=== PATIENT | male | born 1960 | race African-American/Black ===

== ENCOUNTER 2020-02-04 19:21 | Emergency (ER) | payer OTHER ==
[~2020-02-04] VITALS: Ht 193 cm; Wt 120.2 kg
[2020-02-04 19:24] VITALS: BP 145/97
--- NOTE | 2020-02-04 19:45 | Emergency Room Report ---
History of Present Illness General Chief Complaint: Pain Source: Patient Present Illness HPI 59-year-old male with history of hypertension and chronic bilateral lower extremity pain and edema from [place], brought in by ambulance due to increased pain in the right lower leg. Also fresh abrasion noted over right anterior tib- fib. Patient rates the pain 10 out of 10. Appears to have an underlying psychiatric disorder. Reports that he is taking hydrochlorothiazide for hypertension. Bilateral lower extremity, and tightness noted. Appears to be chronic. Patient does not cooperate with physical examination. Denies any tingling numbness at this time. Denies chest pain, shortness of breath, cough or congestion. Has been taking ibuprofen for pain relief with minimal relief. Allergies: Coded Allergies: IBUPROFEN (Verified Allergy, Unknown, 02/04/20) COVID-19 Screening Contact w/high risk pt: No Recent Travel to affected area: No Experienced COVID-19 symptoms?: No Patient History Past Medical History: see triage record Past Surgical History: unable to obtain Pertinent Family History: unable to obtain Immunizations: UTD Reviewed Nursing Documentation: PMH: Agreed; PSxH: Agreed Nursing Documentation-PMH Past Medical History: No History, Except For Hx Hypertension: Yes Review of Systems All Other Systems: negative except mentioned in HPI Physical Exam Vital Signs Date Time Temp Pulse Resp B/P (MAP) Pulse Ox O2 Delivery O2 Flow Rate FiO2 02/04/20 19:15 97.0 100 18 145/97 (113) 98 Room Air Sp02 EP Interpretation: reviewed, normal General Appearance: no apparent distress, alert, GCS 15, non-toxic Head: normocephalic, atraumatic Eyes: bilateral eye normal inspection, bilateral eye PERRL ENT: hearing grossly normal, normal pharynx, no angioedema, normal voice Neck: full range of motion, supple/symm/no masses Respiratory: chest non-tender, lungs clear, normal breath sounds, speaking full sentences Cardiovascular #1: regular rate, rhythm, no edema Gastrointestinal: non tender, soft Genitourinary: no CVA tenderness Musculoskeletal: calf tenderness, Kylie's Sign negative, swelling - bilateral lower extremities Neurologic: alert, motor strength/tone normal, oriented x3, sensory intact, responsive, speech normal Psychiatric: judgement/insight normal, memory normal, mood/affect normal, no suicidal/homicidal ideation Skin: abrasion - right tib fib Lymphatic: normal inspection Medical Decision Making PA Attestation All my diagnosis and treatment plans were reviewed ad discussed with my supervising physician Dr. Corado Diagnostic Impression: Primary Impression: Leg edema ER Course 59-year-old male with history of hypertension and chronic bilateral lower extremity pain and edema from [place], brought in by ambulance due to increased pain in the right lower leg. Also fresh abrasion noted over right anterior tib- fib. Patient rates the pain 10 out of 10. Appears to have an underlying psychiatric disorder. Reports that he is taking hydrochlorothiazide for hypertension. Bilateral lower extremity, and tightness noted. Appears to be chronic. Patient does not cooperate with physical examination. Denies any tingling numbness at this time. Denies chest pain, shortness of breath, cough or congestion. Has been taking ibuprofen for pain relief with minimal relief. Ddx considered but are not limited to : Cellulitis, DVT, CHF, edema of bilateral lower extremity Vital signs: are WNL, pt. is afebrile H&PE are most consistent with:leg edema ORDERS:, Right tib-fib x-ray, bilateral venous duplex ultrasound of lower extremities, CBC, CMP, PT and PTT ED INTERVENTIONS: Lasix 20 p.o. Signed out the patient to Dr. Corado at 8 PM Other X-Ray Diagnostic Results Other X-Ray Diagnostic Results : X-Ray ordered: right tib-fib # of Views/Limited Vs Complete: 3 View Indication: Pain EP Interpretation: Yes PA Xray: Interpretation reviewed, by supervising MD, and agrees with findings. Interpretation: no dislocation, no soft tissue swelling, no fractures Impression: No acute disease Electronically Signed by: Dakotah Freeman PA-C Last Vital Signs Date Time Temp Pulse Resp B/P (MAP) Pulse Ox O2 Delivery O2 Flow Rate FiO2 02/04/20 19:15 97.0 100 18 145/97 (113) 98 Room Air Scripts Cephalexin* (KEFLEX*) 500 Mg Capsule 500 MG ORAL EVERY 6 HOURS, #28 CAP Prov: Kem Corado MD 02/04/20 Dakotah Pereira Feb 04, 2020 19:45
[2020-02-04 20:34] VITALS: BP 179/107
[2020-02-04 20:40] LABS: EOSINOPHILS % (AUTO) 0.1 % (0.0-3.0); HEMATOCRIT 46.4 % (42.0-52.0); HEMOGLOBIN 13.6 G/DL (14.2-18.0); LYMPHOCYTES % (AUTO) 8.5 % (20.0-45.0); MEAN CORPUSCULAR VOLUME 83 FL (80-99); MONOCYTES % (AUTO) 6.3 % (1.0-10.0); NEUTROPHILS % (AUTO) 84.1 % (45.0-75.0); PLATELET COUNT 149 K/UL (150-450); RED BLOOD COUNT 5.61 M/UL (4.70-6.10); RED CELL DISTRIBUTION WIDTH 20.7 % (11.6-14.8); WHITE BLOOD COUNT 9.4 K/UL (4.8-10.8)
--- NOTE | 2020-02-04 20:41 | Diagnostic Imaging Report ---
Exam: Ultrasound bilateral lower extremity History: Swelling Findings: There is normal compression, augmentation, color flow in the right common femoral, superficial femoral, femoral in the popliteal vein. No thrombus is identified. Right groin lymph node is noted. Impression: Negative for right lower extremity DVT.
[2020-02-04 20:50] LABS: INR 1.6 (0.9-1.1)
[2020-02-04 20:55] LABS: ANION GAP 13 mmol/L (5-15); BLOOD UREA NITROGEN 77 mg/dL (7-18); CALCIUM 9.1 MG/DL (8.5-10.1); CARBON DIOXIDE 23 MMOL/L (21-32); CHLORIDE 108 MMOL/L (98-107); CREATININE 3.4 MG/DL (0.55-1.30); POTASSIUM 5.3 MMOL/L (3.5-5.1); SODIUM 144 MMOL/L (136-145)
[2020-02-04 21:08] LABS: ALANINE AMINOTRANSFERASE 105 U/L (12-78); ALBUMIN/GLOBULIN RATIO 0.8 (1.0-2.7); ALKALINE PHOSPHATASE 173 U/L (46-116); ASPARTATE AMINO TRANSFERASE 309 U/L (15-37); BILIRUBIN,TOTAL 2.9 MG/DL (0.2-1.0)
[2020-02-04] MEDS ORDERED: Morphine Sulfate 2mg/ml Inj(IV/IM USE ONLY) IVP ONE (22:15)
[2020-02-04] MEDS ORDERED: CEPHALEXIN500 MG ORAL (22:25)
[2020-02-04 22:30] VITALS: BP 169/99
[2020-02-04] MEDS ORDERED: cefTRIAXone 1 GM in NS 55 ML IVPB ONE (22:30)
[2020-02-04 23:30] VITALS: BP 162/99
--- NOTE | 2020-02-05 10:54 | Diagnostic Imaging Report ---
Indication: Trauma, pain Technique: 2 views of the right tibia and fibula Comparison: none Findings: No acute fractures. No dislocations. There is mild degenerative narrowing of the medial knee joint compartment. There are degenerative changes of the patellofemoral compartment as well as mild degenerative changes of the ankle joint. Surgical jennifer are seen in the ankle. There appears to be some surface irregularity of the skin of the lateral ankle region. Impression: No acute process degenerative changes, as described Possible lateral ankle soft tissue injury. Correlate with clinical findings
--- NOTE | 2020-02-05 10:59 | Diagnostic Imaging Report ---
Indication: Reason For Exam: PAIN Technique: 2 views right foot Comparison: none Findings: Exam is limited by the availability of only 2 images. No acute fractures. No dislocations. [place] are seen in the lateral midfoot soft tissues. There are degenerative changes of the ankle joint. There is a small plantar spur. There is hammertoe deformity of the second through fifth digits. Impression: No acute process
--- NOTE | 2020-02-05 15:13 | Diagnostic Imaging Report ---
Indication: Shortness of breath Technique: One view of the chest Comparison: None Findings: The heart is markedly enlarged. The lungs and pleural spaces are grossly clear, although the left lung base is somewhat obscured by the cardiomegaly. Impression: Cardiomegaly. No definite acute process
== END 2020-02-04 23:30 | disposition home or self-care (01) ==
LOC: EDBD 19:21 → EMR 20:08 → EDBD 20:08 → EMR 23:30
DX: R60.0 Localized edema (principal); M79.605 Pain in left leg; M79.604 Pain in right leg; I10 Essential (primary) hypertension; Z79.899 Other long term (current) drug therapy
CPT/HCPCS: 36415; 71045; 73590; 73620; 80053; 82248; 85025; 85610; 85730; 93971; 96365; 96375; J0696; J2270; Z7502; 99284

== ENCOUNTER 2020-02-29 15:36 | Emergency (ER) | payer OTHER ==
[~2020-02-29] VITALS: Ht 177.8 cm; Wt 136.1 kg
[~2020-02-29 15:36] MED LIST: CEPHALEXIN500 MG ORAL
[2020-02-29 15:37] VITALS: BP 123/79
--- NOTE | 2020-02-29 15:37 | NUR ---
ED Nurse Note: Patient MATI RA26 from home c/o SOB x1 week. Per pt, he ran out of all his meds. Stated that he has been hospitalized 2 weeks ago for the same sx. AAO x4, verbally responsive. Afebrile. Pt placed on cafeteria monitor. Covid isolation precaution observed. ERMD at bedside.
--- NOTE | 2020-02-29 15:40 | NUR ---
ED Nurse Note: IV line established. Blood and urine specimen collected and sent to lab.
--- NOTE | 2020-02-29 15:41 | Emergency Room Report ---
History of Present Illness General Chief Complaint: Dyspnea/Respdistress Source: Patient Present Illness HPI Disclaimer: Please note that this report is being documented using DRAGON technology. This can lead to erroneous entry secondary to incorrect interpretation by the dictating instrument. HPI: 59-year-old male with a history of atrial fibrillation, hypertension presents for evaluation shortness of breath. Symptoms present proximally 1 week. He notes a mild cough, nasal congestion, runny nose and some sore throat. He has had 2 nights of vomiting but is still able to tolerate liquids. Denies diarrhea, dysuria, hematuria, abdominal pain, chest pain, palpitations. Patient states he ran out of his hydrochlorothiazide, lisinopril , digoxin 2 nights ago. No known sick contacts. Denies fever, chills, fatigue. Denies any history of pulmonary disease such as asthma, emphysema, COPD and does not use any inhalers. PMH: A. fib, hypertension PSH: Reviewed Allergies: Tylenol, ibuprofen, vancomycin Social Hx: Tobacco use regularly Allergies: Coded Allergies: ACETAMINOPHEN (Unverified Allergy, Unknown, 02/29/20) IBUPROFEN (Verified Allergy, Unknown, 02/04/20) VANCOMYCIN (Unverified Allergy, Unknown, 02/29/20) COVID-19 Screening Contact w/high risk pt: No Recent Travel to affected area: No Experienced COVID-19 symptoms?: Yes COVID-19 symptoms experienced: Shortness of Breath COVID-19 Testing performed REINFORCING ROD LAYER: No Nursing Documentation-PMH Past Medical History: No History, Except For Hx Hypertension: Yes Review of Systems All Other Systems: negative except mentioned in HPI Physical Exam Vital Signs Date Time Temp Pulse Resp B/P (MAP) Pulse Ox O2 Delivery O2 Flow Rate FiO2 02/29/20 15:32 97.5 96 18 123/79 (94) 96 Room Air General: Awake and alert, no acute distress HEENT: NC/AT. EOMI. Cardiovascular: RRR. S1 and S2 normal. No murmur appreciated Resp: Normal work of breathing. No cough, wheezing or crackles appreciated Abdomen: Abdomen is soft, nondistended. Nontender Skin: Intact. No abrasions, laceration or rash over the exposed skin MSK: Normal tone and bulk. Moving all extremities. No obvious deformity. Neuro: Awake and alert. Mentating appropriately. Medical Decision Making Diagnostic Impression: Primary Impression: CHF (congestive heart failure) Additional Impressions: Pulmonary edema Atrial fibrillation Nonadherence to medication ER Course 59-year-old male presents for evaluation of shortness of breath. Differential includes was not limited to CHF exacerbation, medication noncompliance, fluid overload state, pneumonia, bronchitis, arrhythmia, ACS. Labs, EKG and chest x- ray were obtained. EKG shows atrial fibrillation with a normal rate. Troponin negative, digoxin outside of therapeutic window. Patient has a history of noncompliance. Remainder labs are normal limits. Chest x-ray concerning for cardiomegaly and pulmonary congestion likely secondary to medication noncompliance with his Lasix. IV Lasix given. Digoxin ordered. He will require admission for CHF exacerbation. Remains mildly tachycardic but no hypoxia. Patient will be transferred to a [facility]. He is stable for transfer. Laboratory Tests Test 02/29/20 15:51 White Blood Count 4.2 K/UL (4.8-10.8) L Red Blood Count 4.00 M/UL (4.70-6.10) L Hemoglobin 9.9 G/DL (14.2-18.0) L Hematocrit 34.8 % (42.0-52.0) L Mean Corpuscular Volume 87 FL (80-99) Mean Corpuscular Hemoglobin 24.8 PG (27.0-31.0) L Mean Corpuscular Hemoglobin Concent 28.6 G/DL (32.0-36.0) L Red Cell Distribution Width 20.4 % (11.6-14.8) H Platelet Count 143 K/UL (150-450) L Mean Platelet Volume 9.8 FL (6.5-10.1) Neutrophils (%) (Auto) 59.5 % (45.0-75.0) Lymphocytes (%) (Auto) 23.6 % (20.0-45.0) Monocytes (%) (Auto) 11.0 % (1.0-10.0) H Eosinophils (%) (Auto) 3.8 % (0.0-3.0) H Basophils (%) (Auto) 2.1 % (0.0-2.0) H Sodium Level 142 MMOL/L (136-145) Potassium Level 4.3 MMOL/L (3.5-5.1) Chloride Level 106 MMOL/L (98-107) Carbon Dioxide Level 31 MMOL/L (21-32) Anion Gap 5 mmol/L (5-15) Blood Urea Nitrogen 22 mg/dL (7-18) H Creatinine 1.5 MG/DL (0.55-1.30) H Estimated Glomerular Filtration Rate 57.8 mL/min (>60) Glucose Level 103 MG/DL (74-106) Calcium Level 9.2 MG/DL (8.5-10.1) Total Bilirubin 0.9 MG/DL (0.2-1.0) Aspartate Amino Transferase (AST) 26 U/L (15-37) Alanine Aminotransferase (ALT) 25 U/L (12-78) Alkaline Phosphatase 179 U/L (46-116) H Troponin I 0.015 ng/mL (0.000-0.056) Pro-B-Type Natriuretic Peptide 2957 pg/mL (0-125) H Total Protein 5.9 G/DL (6.4-8.2) L Albumin 2.5 G/DL (3.4-5.0) L Globulin 3.4 g/dL Albumin/Globulin Ratio 0.7 (1.0-2.7) L Digoxin Level < 0.2 NG/ML (0.5-2.0) L EKG Diagnostic Results EKG Time: 15:57 Rate: normal Rhythm: other - Atrial fibrillation ST Segments: no acute changes Other Impression 80s Rhythm Strip Diag. Results Rhythm Strip Time: 15:57 EP Interpretation: yes Rate: 80s Rhythm: other - Atrial fibrillation Chest X-Ray Diagnostic Results Chest X-Ray Diagnostic Results : Chest X-Ray Ordered: Yes # of Views/Limited/Complete: 1 View Indication: Shortness of Breath EP Interpretation: Yes Interpretation: other - Cardiomegaly with bilateral pulmonary congestion. Impression: Other - Cardiomegaly and bilateral pulmonary edema Electronically Signed by: Electronically signed by Dr. Ramsey Chicas Last Vital Signs Date Time Temp Pulse Resp B/P (MAP) Pulse Ox O2 Delivery O2 Flow Rate FiO2 02/29/20 15:32 97.5 96 18 123/79 (94) 96 Room Air Disposition: SHORT-TERM HOSP Condition: Stable Ramsey Chicas MD February 29, 2020 15:41
--- NOTE | 2020-02-29 15:50 | NUR ---
ED Nurse Note: Xray at bedside.
--- NOTE | 2020-02-29 16:13 | Diagnostic Imaging Report ---
Indication: Shortness of breath Technique: XRAY Chest 1v Comparison: 02/04/2020 Findings: Cardiomegaly is stable. There is pulmonary vascular congestion/early interstitial edema. No evidence to suggest alveolar edema. No dense consolidation although evaluation of the retrocardiac lung is limited. No appreciable pleural effusion or pneumothorax. Osseous structures demonstrate no acute abnormality. Impression: Marked cardiomegaly. Pulmonary vascular congestion/mild interstitial edema.
[2020-02-29 16:34] LABS: BASOPHILS % (AUTO) 2.1 % (0.0-2.0); EOSINOPHILS % (AUTO) 3.8 % (0.0-3.0); HEMATOCRIT 34.8 % (42.0-52.0); HEMOGLOBIN 9.9 G/DL (14.2-18.0); LYMPHOCYTES % (AUTO) 23.6 % (20.0-45.0); MEAN CORPUSCULAR VOLUME 87 FL (80-99); NEUTROPHILS % (AUTO) 59.5 % (45.0-75.0); PLATELET COUNT 143 K/UL (150-450); RED CELL DISTRIBUTION WIDTH 20.4 % (11.6-14.8); WHITE BLOOD COUNT 4.2 K/UL (4.8-10.8)
[2020-02-29 16:50] LABS: ANION GAP 5 mmol/L (5-15); BLOOD UREA NITROGEN 22 mg/dL (7-18); CALCIUM 9.2 MG/DL (8.5-10.1); CARBON DIOXIDE 31 MMOL/L (21-32); CHLORIDE 106 MMOL/L (98-107); CREATININE 1.5 MG/DL (0.55-1.30); POTASSIUM 4.3 MMOL/L (3.5-5.1); SODIUM 142 MMOL/L (136-145)
[2020-02-29 16:55] LABS: ALANINE AMINOTRANSFERASE 25 U/L (12-78); ALBUMIN 2.5 G/DL (3.4-5.0); ALBUMIN/GLOBULIN RATIO 0.7 (1.0-2.7); ALKALINE PHOSPHATASE 179 U/L (46-116); ASPARTATE AMINO TRANSFERASE 26 U/L (15-37); BILIRUBIN,TOTAL 0.9 MG/DL (0.2-1.0)
[2020-02-29] MEDS ORDERED: Morphine Sulfate 4mg/ml Inj (IV USE ONLY) IVP ONE (17:30)
[2020-02-29] MEDS ORDERED: Digoxin 0.5mg/2ml Inj IVP ONE (17:45)
[2020-02-29 18:02] VITALS: BP 147/93
--- NOTE | 2020-02-29 18:02 | NUR ---
ED Nurse Note: Pt cleared by ERMElio to be transferred to [facility]. Report given to Josh. Pt AAOx4, verbally responsive. Afebrile. Breathing even and unlabored. IV line on right AC 20g patent and intact. Picked up by ALS, accompanied by 2 EMT via [place]. Pt left with all belongings.
--- NOTE | 2020-02-29 18:02 | NUR ---
ED Nurse Note: Report given to Josh BURNETTE from [facility].
== END 2020-02-29 18:02 | disposition short-term general hospital (02) ==
LOC: EDBD 15:36 → EMR 15:59
DX: I11.0 Hypertensive heart disease with heart failure (principal); I50.9 Heart failure, unspecified; J81.1 Chronic pulmonary edema; I48.91 Unspecified atrial fibrillation; Z91.14 Patient's other noncompliance with medication regimen; I10 Essential (primary) hypertension; Z88.6 Allergy status to analgesic agent; I51.7 Cardiomegaly
CPT/HCPCS: 36415; 71045; 80053; 80162; 83880; 84484; 85025; 93005; 96374; 96375; J1160; J1940; J2270; Z7502; 99285